=== PATIENT | male | born 1980 | race Caucasian/White ===

== ENCOUNTER 2016-10-30 01:02 | Emergency (ER) | payer SELFPAY ==
[2016-10-30 01:22] VITALS: BP 211/188
== END 2016-10-30 02:49 | disposition left against medical advice (07) ==
LOC: ED 01:02
DX: M25.512 Pain in left shoulder (principal); Z53.21 Procedure and treatment not carried out due to patient leaving prior to being seen by health care provider

== ENCOUNTER → 2016-11-01 02:04 | Emergency (ER) | payer OTHER ==
[2016-11-01 02:20] VITALS: BP 132/92
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
== END | disposition home or self-care (01) ==
LOC: ED 02:04
DX: S06.0X9A Concussion with loss of consciousness of unspecified duration, initial encounter (principal); F17.210 Nicotine dependence, cigarettes, uncomplicated; Y35.813A Legal intervention involving manhandling, suspect injured, initial encounter; Y92.481 Parking lot as the place of occurrence of the external cause
CPT/HCPCS: 70450; 99282